=== PATIENT | male | born 1955 | race Caucasian/White ===

== ENCOUNTER 2017-08-04 14:32 | Outpatient (CLI) | payer SELFPAY | END 2017-08-04 14:33 | disposition critical access hospital (66) | LOC: EMS 14:32 | PROVIDERS: ATTEND Surgery | DX: R56.9 Unspecified convulsions (principal) | CPT/HCPCS: A0425; A0429 ==

== ENCOUNTER 2017-08-04 14:50 | Emergency (ER) | payer SELFPAY ==
[2017-08-04] MEDS ORDERED: PHENYTOIN 100 MG/2 ML VIAL IVP STA (15:06)
--- NOTE | 2017-08-04 15:08 | ED Physician Documentation ---
PD HPI SEIZURE - Stated complaint Stated Complaint: SEIZURE - Chief complaint Chief Complaint: Neuro - History obtained from History obtained from: Patient - History of Present Illness Timing - onset: Today Witnessed: Witnessed Number of seizures: Single Description of seizure activity: Generalized Injury during seizure: None Associated symptoms: None History of seizures: Known seizure disorder Contributing factors: Out of meds Similar symptoms before: Diagnosis (seizure disorder) Recently seen: Not recently seen - Additional information Additional information: 61-year-old male with a history of seizure disorder usually on Dilantin has been cutting down on his Dilantin because of running out of medications. Today he was at his home in his apartment on [address] when he had a seizure. This was witnessed by his girlfriend and his grandson.He indicates that he has not had a seizure for "a long time ".He did not feel ill prior to this and denies current illness. Review of Systems Constitutional: denies: Fever, Chills, Myalgias, Fatigue Eyes: denies: Decreased vision Ears: denies: Ear pain Nose: denies: Rhinorrhea / runny nose, Congestion Throat: denies: Sore throat Cardiac: denies: Chest pain / pressure, Palpitations Respiratory: denies: Dyspnea, Cough GI: denies: Abdominal Pain, Nausea, Vomiting, Constipation, Diarrhea : denies: Dysuria, Frequency Skin: denies: Rash Musculoskeletal: denies: Neck pain, Back pain, Extremity pain Neurologic: reports: Seizure. denies: Generalized weakness, Focal weakness, Numbness, Confused PD PAST MEDICAL HISTORY - Present Medications Home Medications: Ambulatory Orders Medication Instructions Recorded Confirmed Azithromycin [Zithromax] 250 mg PO DAILY #6 tablet 08/04/17 Phenytoin [Dilantin] 200 mg PO BID #120 capsule 08/04/17 PD ED PE NORMAL - Vitals Vital signs reviewed: Yes (Hypertensive) - General General: No acute distress, Well developed/nourished - HEENT HEENT: Atraumatic, PERRL, EOMI, Other (There is mild erythema to the right TM and not to the left.) - Neck Neck: Supple, no meningeal sign, No bony TTP - Cardiac Cardiac: RRR, No murmur - Respiratory Respiratory: No respiratory distress, Clear bilaterally - Abdomen Abdomen: Soft, Non tender - Back Back: No CVA TTP, No spinal TTP - Derm Derm: Normal color, Warm and dry, No rash - Extremities Extremities: No deformity, No edema - Neuro Neuro: Alert and oriented X 3, quality consultant 2-12 intact, No motor deficit, No sensory deficit - Psych Psych: Normal mood, Normal affect Results - Vitals Vitals: Vital Signs - 24 hr 08/04/17 08/04/17 14:52 15:47 Temperature 36.4 C L Heart Rate 94 83 Respiratory 18 16 Rate Blood Pressure 130/107 H 126/99 H O2 Saturation 97 94 Oxygen O2 Source Room air - EKG (time done) 1501 Rate: Rate (enter#) (91) Rhythm: NSR Ischemia: Q waves (V1,V2) Compare to prior EKG: Old EKG unavailable Computer interpretation: Agree with computer - Labs Labs: Laboratory Tests 08/04/17 08/04/17 08/04/17 15:26 15:26 15:26 WBC 7.2 RBC 4.91 Hgb 16.3 Hct 47.3 MCV 96.2 H MCH 33.1 H MCHC 34.4 RDW 14.1 Plt Count 281 MPV 7.5 Neut # 4.5 Lymph # 2.0 [place] # 0.5 Eos # 0.1 Baso # 0.0 Absolute Nucleated RBC 0.00 Nucleated RBCs 0.1 Sodium 135 Potassium 4.2 Chloride 103 Carbon Dioxide 24 Anion Gap 8.0 BUN 25 H Creatinine 0.9 Estimated GFR (MDRD) 86 L Glucose 103 H Calcium 9.2 Total Bilirubin 0.3 AST 28 ALT 22 Alkaline Phosphatase 62 Troponin I < 0.04 Total Protein 7.1 Albumin 3.8 Globulin 3.3 Albumin/Globulin Ratio 1.2 Lipase 20 L Phenytoin < 2.5 Ethyl Alcohol 6.3 Procedures - IVC sono (time) 1508 Bedside IVC sono: IVC measures (cm) (1.63), Euvolemia PD MEDICAL DECISION MAKING - ED course Complexity details: reviewed old records, reviewed results, re-evaluated patient , considered differential, d/w patient, d/w family ED course: 61-year-old male with a history of seizure disorder who is been seizure-free on Dilantin for years has stopped his Dilantin about 40 days ago. He had a seizure today 2. The seizures were prolonged about 5 minutes each and he was postictal following them. Here in the emergency department he is administered Dilantin 300 mg intravenously and he is found on examination to have a right otitis media and this is treated as well with dexamethasone and we will put him on a Z-Vince. I have agreed to write a prescription for the patient's Dilantin at 200 mg twice daily with 1 refill to last the patient 2 months. He does have some psoriasis that is bothering him recently and I suspect this may be related to the otitis as well. Departure - Departure Disposition: 01 Home, Self Care Clinical Impression: Seizure, Subtherapeutic serum dilantin level Otitis media Qualifiers: Otitis media type: suppurative Chronicity: acute Laterality: right Recurrence: not specified as recurrent Spontaneous tympanic membrane rupture: without spontaneous rupture Qualified Code(s): H66.001 - Acute suppurative otitis media without spontaneous rupture of ear drum, right ear Condition: Stable Instructions: ED Otitis Media Acute Adult, ED Seizure Recurrent, Epilepsy Self Care Follow-Up: Sofy Jaeger PA-C [Primary Care Provider] - Prescriptions: Phenytoin [Dilantin] 200 mg PO BID #120 capsule Azithromycin [Zithromax] 250 mg PO DAILY #6 tablet Comments: Today in the Emergency Department your blood pressure was elevated. This can happen from the stress of the visit itself, from a current illness or circumstance or from uncontrolled hypertension. If you take blood pressure medications take your usual mediations, have your blood pressure re-checked in an appropriate setting and follow up any elevation with your primary care doctor.
[2017-08-04 15:57] LABS: ALBUMIN/GLOBULIN RATIO 1.2 (1.0-2.2); BILIRUBIN,TOTAL 0.3 mg/dL (0.2-1.0); BUN - BLOOD UREA NITROGEN 25 mg/dL (6-20); CALCIUM 9.2 mg/dL (8.5-10.3); CARBON DIOXIDE - CO2 24 mmol/L (21-32); CHLORIDE 103 mmol/L (101-111); CREATININE 0.9 mg/dL (0.6-1.2); GFR - MDRD 86 (>89); GLUCOSE 103 mg/dL (70-100); LIPASE 20 U/L (22-51); POTASSIUM 4.2 mmol/L (3.5-5.0); SODIUM 135 mmol/L (135-145); TOTAL PROTEIN 7.1 g/dL (6.7-8.2)
[2017-08-04 16:10] LABS: BASOPHILS % (AUTO) 0.6 %; EOSINOPHILS # (AUTO) 0.1 10^3/uL (0.0-0.7); HCT - HEMATOCRIT 47.3 % (42.0-52.0); HGB - HEMOGLOBIN 16.3 g/dL (14.0-18.0); LYMPHOCYTES % (AUTO) 27.6 %; MEAN CORPUSCULAR HEMOGLOBIN 33.1 pg (27.0-31.0); MEAN CORPUSCULAR HGB CONC 34.4 g/dL (32.0-36.0); MEAN CORPUSCULAR VOLUME 96.2 fL (80.0-94.0); MEAN PLATELET VOLUME 7.5 fL (7.4-11.4); MONOCYTES # (AUTO) 0.5 10^3/uL (0.0-1.0); MONOCYTES % (AUTO) 7.5 %; NEUTROPHILS # (AUTO) 4.5 10^3/uL (1.5-6.6); NEUTROPHILS % (AUTO) 62.3 %; NUCLEATED RED BLOOD CELLS AUTO 0.1 /100WBC; RED BLOOD COUNT 4.91 10^6/uL (4.70-6.10); RED CELL DISTRIBUTION WIDTH 14.1 % (12.0-15.0); UNCORRECTED WHITE BLOOD COUNT 7.2 x10^3/uL; WHITE BLOOD COUNT 7.2 x10^3/uL (4.8-10.8)
[2017-08-04] MEDS ORDERED: DEXAMETHASONE 10 MG/ML VIAL IVP STA (16:36)
[2017-08-04 16:50] VITALS: BP 147/93
[2017-08-04] MEDS ORDERED: DEXAMETHASONE 10 MG/ML VIAL ONE (16:51)
[2017-08-04] MEDS ORDERED: SODIUM CHLORIDE FLUSH 0.9% 10 ML SYRINGE IVP ONE (16:51)
[2017-08-04 16:58] LABS: BILIRUBIN,URINE NEGATIVE (NEGATIVE)
[2017-08-04 16:59] LABS: UA CHARGE (STRIP ONLY) YES; UR CULTURE IF IND NOT INDICATED
== END 2017-08-04 16:57 | disposition home or self-care (01) ==
LOC: EDUNIT# → ED 14:50
DX: R56.9 Unspecified convulsions (principal); T42.0X6A Underdosing of hydantoin derivatives, initial encounter; Z91.128 Patient's intentional underdosing of medication regimen for other reason
CPT/HCPCS: 36415; 80053; 80185; 80306; 80320; 81001; 81003; 83690; 84484; 85025; 87086; 93005; 96374; 96375; 99284

== ENCOUNTER 2018-01-05 11:51 | Outpatient (CLI) | payer SELFPAY | END 2018-01-05 11:52 | disposition critical access hospital (66) | LOC: EMS 11:51 | PROVIDERS: ATTEND Surgery | DX: R56.9 Unspecified convulsions (principal); R51 Headache; W07.XXXA Fall from chair, initial encounter; Y92.030 Kitchen in apartment as the place of occurrence of the external cause | CPT/HCPCS: A0425; A0429 ==

== ENCOUNTER 2018-01-05 12:05 | Emergency (ER) | payer SELFPAY ==
[2018-01-05 13:14] LABS: BASOPHILS % (AUTO) 0.5 %; EOSINOPHILS # (AUTO) 0.1 10^3/uL (0.0-0.7); EOSINOPHILS % (AUTO) 1.8 %; HGB - HEMOGLOBIN 15.8 g/dL (14.0-18.0); LYMPHOCYTES # (AUTO) 1.1 10^3/uL (1.5-3.5); LYMPHOCYTES % (AUTO) 14.3 %; MEAN CORPUSCULAR HEMOGLOBIN 33.1 pg (27.0-31.0); MEAN CORPUSCULAR HGB CONC 34.3 g/dL (32.0-36.0); MEAN CORPUSCULAR VOLUME 96.5 fL (80.0-94.0); MEAN PLATELET VOLUME 6.7 fL (7.4-11.4); MONOCYTES # (AUTO) 0.6 10^3/uL (0.0-1.0); MONOCYTES % (AUTO) 7.3 %; NEUTROPHILS # (AUTO) 5.9 10^3/uL (1.5-6.6); NEUTROPHILS % (AUTO) 76.1 %; PLT - PLATELET COUNT 240 10^3/uL (130-450); RED BLOOD COUNT 4.76 10^6/uL (4.70-6.10); RED CELL DISTRIBUTION WIDTH 13.8 % (12.0-15.0); WHITE BLOOD COUNT 7.8 x10^3/uL (4.8-10.8)
[2018-01-05 13:23] LABS: CALCIUM 8.7 mg/dL (8.5-10.3); PHENYTOIN (DILANTIN) 4.6 ug/mL
[2018-01-05] MEDS ORDERED: NAPROXEN 250 MG TABLET PO STA (13:30)
--- NOTE | 2018-01-05 13:38 | ED Physician Documentation ---
PD HPI SEIZURE - Stated complaint Stated Complaint: SZ - Chief complaint Chief Complaint: Neuro - History obtained from History obtained from: Patient, Family, EMS - History of Present Illness Timing - onset: Today Witnessed: Witnessed Number of seizures: Single, Lasted - seconds (20) Description of seizure activity: Generalized, Tonic clonic Injury during seizure: Fell, Head injury (hit head on tile floor.). No: Neck injury, Bit tongue, Shoulder dislocation Pain level max: 6 Pain level now: 5 Associated symptoms: No: Headache, Vision changes, Chest pain, Palpitations, Diaphoresis, Dyspnea, Nausea / vomiting History of seizures: Known seizure disorder Contributing factors: Other (has "had to stretch out his medications because no pharmacy has them in stock") Similar symptoms before: Diagnosis (seizures) Recently seen: Not recently seen Review of Systems Ten Systems: 10 systems reviewed and negative Constitutional: denies: Fever, Chills Ears: denies: Ear pain Nose: denies: Rhinorrhea / runny nose, Congestion GI: denies: Abdominal Pain, Nausea, Vomiting, Diarrhea Skin: denies: Rash Musculoskeletal: denies: Neck pain, Back pain Neurologic: denies: Focal weakness, Numbness, Headache PD PAST MEDICAL HISTORY - Past Medical History Past Medical History: Yes Neuro: Seizure disorder - Present Medications Home Medications: Ambulatory Orders Medication Instructions Recorded Confirmed Azithromycin [Zithromax] 250 mg PO DAILY #6 tablet 08/04/17 Phenytoin [Dilantin] 200 mg PO BID #120 capsule 08/04/17 Meloxicam [Mobic] 7.5 mg PO BID PRN #20 tablet 01/05/18 - Allergies Allergies/Adverse Reactions: Allergies Allergy/AdvReac Type Severity Reaction Status Date / Time Penicillins Allergy Itching Verified 01/05/18 13:47 - Social History Does the pt smoke?: Yes Smoking Status: Current every day smoker PD ED PE NORMAL - Vitals Vital signs reviewed: Yes - General General: Alert and oriented X 3, No acute distress, Well developed/nourished - HEENT HEENT: PERRL, EOMI, Ears normal, Moist mucous membranes, Pharynx benign, Other ( Occipital scalp hematoma without palpable fracture) - Neck Neck: Supple, no meningeal sign, No bony TTP, Other (Full range of motion without pain) - Cardiac Cardiac: RRR, Strong equal pulses - Respiratory Respiratory: No respiratory distress, Clear bilaterally - Abdomen Abdomen: Soft, Non tender, Non distended - Back Back: No spinal TTP - Derm Derm: Warm and dry - Extremities Extremities: No deformity, Normal ROM s pain - Neuro Neuro: Alert and oriented X 3, jingle writer 2-12 intact, No motor deficit, No sensory deficit, Normal speech Eye Opening: Spontaneous Motor: Obeys Commands Verbal: Oriented GCS Score: 15 - Psych Psych: Normal mood Results - Vitals Vitals: Vital Signs - 24 hr 01/05/18 01/05/18 12:08 15:01 Temperature 36.4 C L Heart Rate 81 68 Respiratory 18 18 Rate Blood Pressure 166/107 H 168/106 H O2 Saturation 96 98 Oxygen O2 Source Room air - Labs Labs: Laboratory Tests 01/05/18 01/05/18 13:10 13:10 WBC 7.8 RBC 4.76 Hgb 15.8 Hct 45.9 MCV 96.5 H MCH 33.1 H MCHC 34.3 RDW 13.8 Plt Count 240 MPV 6.7 L Neut # 5.9 Lymph # 1.1 L [place] # 0.6 Eos # 0.1 Baso # 0.0 Absolute Nucleated RBC 0.00 Nucleated RBC % 0.0 Sodium 138 Potassium 4.6 Chloride 102 Carbon Dioxide 27 Anion Gap 9.0 BUN 17 Creatinine 1.0 Estimated GFR (MDRD) 76 L Glucose 95 Calcium 8.7 Phenytoin 4.6 - Rads (name of study) head CT Radiology: Prelim report reviewed, EMP read contemporaneously, See rad report ( no acute intracranial abnormality.) PD MEDICAL DECISION MAKING - ED course Complexity details: reviewed old records, reviewed results, re-evaluated patient , considered differential, d/w patient, d/w family ED course: Patient is a 62-year-old male who presents to the emergency department with a recurrent seizure. No seizure disorder. Did strike his head forcefully on the ground, therefore head CT was obtained. No acute intracranial abnormalities. No neck pain or tenderness. Recommend that he follow-up with his doctor regarding his medications as he is having difficulty finding a pharmacy to fill the phenytoin at. Possible that he would benefit from switching to something such as Keppra? Patient and family counseled regarding signs and symptoms for which I believe and urgent re-evaluation would be necessary. Patient with good understanding of and agreement to plan and is comfortable going home at this time This document was made in part using voice recognition software. While efforts are made to proofread this document, sound alike and grammatical errors may occur. Departure - Departure Disposition: 01 Home, Self Care Clinical Impression: Seizure, Subtherapeutic serum dilantin level Condition: Good Instructions: ED Seizure Recurrent Follow-Up: Matt Gaston MD [Credentialed Staff Provider] - Within 1 week Prescriptions: Meloxicam [Mobic] 7.5 mg PO BID PRN #20 tablet PRN Reason: Pain Comments: Talk to your doctor about changing your medication to something like Keppra to see if this will better control your seizures. Return if you worsen. Discharge Date/Time: 01/05/18 15:04
--- NOTE | 2018-01-05 14:40 | CT Report ---
EXAM: CT HEAD EXAM DATE: 01/05/2018 02:05 PM. CLINICAL HISTORY: Fall, head injury during seizure. History left back area of head. COMPARISON: None. TECHNIQUE: Multiaxial CT images were obtained from the foramen magnum to the vertex. Reformats: Coron al. IV contrast: None. In accordance with CT protocol optimization, one or more of the following dose reduction techniques w ere utilized for this exam: automated exposure control, adjustment of mA and/or KV based on patient s ize, or use of iterative reconstructive technique. FINDINGS: Parenchyma: No intraparenchymal hemorrhage. No evidence of mass, midline shift, or CT findings of inf arction. Duncan-white differentiation is distinct. Extraaxial Spaces: Normal for age. No subdural or epidural collections identified. Ventricles: Normal in size and position. Sinuses and Orbits: Imaged paranasal sinuses, orbits, and mastoids show no significant abnormality. Bones: No evidence of fracture or calvarial defect. Other: None. IMPRESSION: Normal head CT. [facility] Referring Provider Line: [phone] SITE ID: [id number]
--- NOTE | 2018-01-05 14:40 | CT Preliminary Report ---
Exam: CT HEAD W/O IMPRESSION: Normal head CT. [facility] SITE ID: [id number]
[2018-01-05 15:01] VITALS: BP 168/106
== END 2018-01-05 15:04 | disposition home or self-care (01) ==
LOC: EDUNIT# → ED 12:05
DX: R56.9 Unspecified convulsions (principal); T42.0X6A Underdosing of hydantoin derivatives, initial encounter; Z91.128 Patient's intentional underdosing of medication regimen for other reason; F17.200 Nicotine dependence, unspecified, uncomplicated
CPT/HCPCS: 36415; 70450; 80048; 80185; 85025; 99284; A9270

== ENCOUNTER 2021-11-09 13:26 | Emergency (ER) | payer OTHER ==
--- NOTE | 2021-11-09 13:47 | ED Physician Documentation ---
PD HPI HEENT - Stated complaint Stated Complaint: DIZZINESS/WEAKNESS - Chief complaint Chief Complaint: Neuro - History obtained from History obtained from: Patient - History of Present Illness Timing - onset: How many days ago (few) Timing - duration: Days (few) Timing - details: Gradual onset, Still present, Waxing and waning Location: Other (He has had a feeling of vertigo with movement more to the left with head position and orthostatic position changes for several days. Gradual onset with waxing and waning. Feeling of some sinus pressure and congestion. No cough or ear pain.) Improves: Other (holding still and lying reclined.) Worsens: Position (moving head or standing up.) Associated symptoms: Other (denies ear pain.). No: Fever, Congestion, Rhinorrhea, Headache Similar symptoms before: Diagnosis (He states he had similar symptoms with an ear infection several years ago. Denies any recent congestion or viral symptoms per se. Denies recent injury to the head. Denies change in medical condition of his phenytoin. He did have his lisinopril dose increased a month ago.) Recently seen: Clinic (last PMD visit about 2 months ago, with increased dose Lisinopril, and changed regimen for dilantin (same daily total but went from 200 mg BID to 400 mg just at night).) Review of Systems Constitutional: denies: Fever, Chills Eyes: denies: Loss of vision Ears: denies: Loss of hearing, Ear pain Nose: reports: Sinus pressure / pain. denies: Rhinorrhea / runny nose, Con gestion Throat: denies: Sore throat Respiratory: denies: Cough GI: reports: Nausea (with the vertigo). denies: Vomiting, Diarrhea Skin: denies: Rash, Lesions Neurologic: denies: Focal weakness, Numbness, Headache, Head injury PD PAST MEDICAL HISTORY - Past Medical History Past Medical History: Yes Cardiovascular: Hypertension, High cholesterol Respiratory: None Neuro: Seizure disorder (denies recent dose change, but the timing is different, moving from 200 mg BID to 400 mg at night couple months ago. Otherwise had Lisinopril dose increased 20 to 40 mg. ) Endocrine/Autoimmune: None GI: None : None HEENT: None Psych: None Musculoskeletal: None Derm: Psoriasis - Past Surgical History Past Surgical History: Yes Derm: Skin cancer surgery - Present Medications Home Medications: Ambulatory Orders Medication Instructions Recorded Confirmed Azithromycin [Zithromax] 250 mg PO DAILY #6 tablet 08/04/17 Phenytoin [Dilantin] 200 mg PO BID #120 capsule 08/04/17 Meloxicam [Mobic] 7.5 mg PO BID PRN #20 tablet 01/05/18 Cetirizine [ZyrTEC] 10 mg PO BID #14 tablet 11/09/21 Meclizine HCl [Motion Sickness] 25 mg PO Q6H PRN #30 tablet 11/09/21 cephALEXin [Keflex] 500 mg PO TID 5 Days #15 cap 11/09/21 - Allergies Allergies/Adverse Reactions: Allergies Allergy/AdvReac Type Severity Reaction Status Date / Time Penicillins Allergy Itching Verified 01/05/18 13:47 - Social History Does the pt smoke?: Yes Smoking Status: Current every day smoker Does the pt drink ETOH?: No Does the pt have substance abuse?: No - Immunizations Immunizations are current?: Yes - POLST Patient has POLST: No PD ED PE NORMAL - Vitals Vital signs reviewed: Yes - General General: Alert and oriented X 3, Well developed/nourished - HEENT HEENT: PERRL, EOMI (nystgmus noted to the left with eye movement. ), Moist mucous membranes, Pharynx benign. No: Ears normal (right is normal. Left with fluid pressure behind eardrum and mild redness. ) - Neck Neck: Supple, no meningeal sign, No adenopathy - Cardiac Cardiac: RRR, No murmur - Respiratory Respiratory: Clear bilaterally - Abdomen Abdomen: Soft, Non tender - Derm Derm: Normal color, Warm and dry - Extremities Extremities: No edema, No calf tenderness / cord - Neuro Neuro: Alert and oriented X 3, automobile tester 2-12 intact, No motor deficit, No sensory deficit, Normal speech, Other (He has a normal Romberg test. Uljzhc-ayst-alyyny and [id number] tests are normal as well. No obvious incoordination. Walking does show some listing to the left.) Results - Vitals Vitals: Vital Signs - 24 hr 11/09/21 11/09/21 13:33 16:05 Temperature 35.6 C L 37 C Heart Rate 67 70 Blood Pressure 157/90 H 130/70 O2 Saturation 99 Oxygen O2 Source Room air - EKG (time done) 15:29 Rate: Rate (enter#) (60) Rhythm: NSR [place]: Normal Intervals: Normal [place]. No: Prolonged QT QRS: Low voltage Ischemia: Normal ST segments. No: ST elevation c/w ischemia, ST depression - Labs Labs: Laboratory Tests 11/09/21 11/09/21 14:14 14:14 WBC 7.7 RBC 4.64 L Hgb 15.3 Hct 45.6 MCV 98.3 H MCH 33.0 H MCHC 33.6 RDW 13.7 Plt Count 306 MPV 8.2 Neut # (Auto) 4.4 Lymph # (Auto) 2.3 [place] # (Auto) 0.9 Eos # (Auto) 0.1 Baso # (Auto) 0.0 Absolute Nucleated RBC 0.00 Nucleated RBC % 0.0 Sodium 135 Potassium 4.3 Chloride 97 L Carbon Dioxide 30 Anion Gap 8.0 BUN 20 Creatinine 0.9 Estimated GFR (MDRD) 85 L Glucose 108 H Calcium 9.1 Magnesium 2.2 Total Bilirubin 0.3 AST 16 ALT 14 Alkaline Phosphatase 97 Total Protein 7.5 Albumin 4.0 Globulin 3.5 Albumin/Globulin Ratio 1.1 Lipase 24 Phenytoin 44.8 H* PD MEDICAL DECISION MAKING - ED course Complexity details: reviewed results (toxic dilantin level, but would be chronic and not acute, no overdose or recent increased dose. Referenced UpToDate and disposition can be to home if able to walk safely and not too ataxic nor vomiting. Can have reliable follow up.), re-evaluated patient, considered differential (AsClinically sounds like peripheral vertigo. Will use. He is on Dilantin and that would be worth getting a level as well as sodium level to ensure no toxic cause.), d/w patient Departure - Departure Disposition: Home, Self Care Clinical Impression: Vertigo Dilantin toxicity Qualifiers: Encounter type: initial encounter Injury intent: accidental or unintentional Qualified Code(s): T42.0X1A - Poisoning by hydantoin derivatives, accidental (unintentional), initial encounter Otitis media, left Qualifiers: Otitis media type: serous Chronicity: acute Recurrence: non-recurrent Qualified Code(s): H65.02 - Acute serous otitis media, left ear Condition: Stable Record reviewed to determine appropriate education?: Yes Follow-Up: Julien Rodriguez DO [Primary Care Provider] - Prescriptions: cephALEXin [Keflex] 500 mg PO TID 5 Days #15 cap Meclizine HCl [Motion Sickness] 25 mg PO Q6H PRN #30 tablet PRN Reason: Vertigo Cetirizine [ZyrTEC] 10 mg PO BID #14 tablet Comments: I would hold your Dilantin this evening and for Saturday and Saturday as well. Resume your dosing on Saturday at 200 mg once daily (decreased from twice daily). Follow-up with your primary care to have them recheck your Dilantin level on Saturday or Saturday of this coming week to ensure its improved in the right range. Stay well-hydrated. Your dizziness and off-balance are likely related to the high Dilantin level and these are symptoms of toxicity from that. However you do have some fluid behind the left ear and there could be some element of inner ear problem as well. For that we can use antihistamines to help with fluid as well as medications for the vertigo itself. Recheck if or worsening symptoms over the next day or 2, in particular if you are having difficulty maintaining balance or having worse vision problems or dizziness. Meclizine every 6 hours if needed for vertigo. Again hold your Dilantin dosing tonight tomorrow and Saturday and then resume at half dose pending a recheck of your blood level early this coming week. I transmitted your scripts to [facility] pharmacy. Discharge Date/Time: 11/09/21 16:07
[2021-11-09] MEDS: CHERRY SYRUP 10 ML UDC PO ONE (14:17)
[2021-11-09 14:18] LABS: BASOPHILS % (AUTO) 0.5 %; EOSINOPHILS # (AUTO) 0.1 10^3/uL (0.0-0.7); EOSINOPHILS % (AUTO) 1.3 %; HCT - HEMATOCRIT 45.6 % (42.0-52.0); HGB - HEMOGLOBIN 15.3 g/dL (14.0-18.0); LYMPHOCYTES # (AUTO) 2.3 10^3/uL (1.5-3.5); LYMPHOCYTES % (AUTO) 29.9 %; MEAN CORPUSCULAR HGB CONC 33.6 g/dL (32.0-36.0); MEAN CORPUSCULAR VOLUME 98.3 fL (80.0-94.0); MEAN PLATELET VOLUME 8.2 fL (7.4-11.4); MONOCYTES # (AUTO) 0.9 10^3/uL (0.0-1.0); MONOCYTES % (AUTO) 11.2 %; NEUTROPHILS # (AUTO) 4.4 10^3/uL (1.5-6.6); NEUTROPHILS % (AUTO) 56.8 %; PLT - PLATELET COUNT 306 10^3/uL (130-450); RED BLOOD COUNT 4.64 10^6/uL (4.70-6.10); RED CELL DISTRIBUTION WIDTH 13.7 % (12.0-15.0); WHITE BLOOD COUNT 7.7 x10^3/uL (4.8-10.8)
[2021-11-09] MEDS: CETIRIZINE 10 MG TABLET PO STA (14:18)
[2021-11-09] MEDS: DEXAMETHASONE 10 MG/ML VIAL PO STA (14:18)
[2021-11-09] MEDS: cephALEXin 250 MG CAPSULE PO STA (14:18)
[2021-11-09] MEDS: MECLIZINE 12.5 MG TABLET PO STA (14:18)
[2021-11-09 14:36] LABS: ALBUMIN/GLOBULIN RATIO 1.1 (1.0-2.2); BILIRUBIN,TOTAL 0.3 mg/dL (0.2-1.0); CALCIUM 9.1 mg/dL (8.5-10.3); CREATININE 0.9 mg/dL (0.6-1.2); MAGNESIUM 2.2 mg/dL (1.7-2.8); POTASSIUM 4.3 mmol/L (3.5-5.0); TOTAL PROTEIN 7.5 g/dL (6.7-8.2)
[2021-11-09 15:03] LABS: PHENYTOIN (DILANTIN) 44.8 ug/mL
[2021-11-09 16:07] VITALS: BP 130/70
== END 2021-11-09 16:07 | disposition home or self-care (01) ==
LOC: ED 13:26
DX: R42 Dizziness and giddiness (principal); T42.0X5A Adverse effect of hydantoin derivatives, initial encounter; H65.02 Acute serous otitis media, left ear; G40.909 Epilepsy, unspecified, not intractable, without status epilepticus; I10 Essential (primary) hypertension; F17.200 Nicotine dependence, unspecified, uncomplicated
CPT/HCPCS: 36415; 80053; 80185; 83690; 83735; 85025; 93005; 99283; 99284; A9270

== ENCOUNTER 2023-07-16 15:27 | Emergency (ER) | payer OTHER ==
[2023-07-16 15:44] VITALS: BP 150/80; O2SAT 98
[2023-07-16] MEDS ORDERED: BUFFERED LIDOCAINE 10 ML SYRINGE SUBQ STA (17:23)
[2023-07-16] MEDS ORDERED: TETANUS/DIPHTHERIA/PERTUSSIS 0.5 ML SYRINGE IM ONE (17:23)
--- NOTE | 2023-07-16 17:24 | ED Physician Documentation ---
PD HPI UPPER EXT INJURY - Stated complaint Stated Complaint: RT ELBOW LAC/SWELLING - Chief complaint Chief Complaint: Ext Problem - History obtained from History obtained from: Patient (67-year-old gentleman otherwise healthy with unknown tetanus status was at work 2 weeks ago and scratched himself on a metal edge on the right elbow. It was getting better but then got more swollen and painful and red. No fevers.) PD PAST MEDICAL HISTORY - Past Medical History Cardiovascular: Hypertension, High cholesterol Respiratory: None Neuro: Seizure disorder (denies recent dose change, but the timing is different, moving from 200 mg BID to 400 mg at night couple months ago. Otherwise had Lisinopril dose increased 20 to 40 mg. ) Endocrine/Autoimmune: None GI: None : None HEENT: None Psych: None Musculoskeletal: None Derm: Psoriasis - Past Surgical History Past Surgical History: Yes Derm: Skin cancer surgery - Present Medications Home Medications: Ambulatory Orders Medication Instructions Recorded Confirmed Azithromycin [Zithromax] 250 mg PO DAILY #6 tablet 08/04/17 Phenytoin [Dilantin] 200 mg PO BID #120 capsule 08/04/17 Meloxicam [Mobic] 7.5 mg PO BID PRN #20 tablet 01/05/18 Cetirizine [ZyrTEC] 10 mg PO BID #14 tablet 11/09/21 Meclizine HCl [Motion Sickness] 25 mg PO Q6H PRN #30 tablet 11/09/21 cephALEXin [Keflex] 500 mg PO TID 5 Days #15 cap 11/09/21 Sulfamethox/Trimeth 800/160 1 each PO BID #14 tablet 07/16/23 [Bactrim Ds 800/160] cephALEXin [Keflex] 500 mg PO Q6H #28 cap 07/16/23 - Allergies Allergies/Adverse Reactions: Allergies Allergy/AdvReac Type Severity Reaction Status Date / Time Penicillins Allergy Itching Verified 07/16/23 15:31 - Social History Does the pt smoke?: Yes Smoking Status: Current every day smoker Does the pt drink ETOH?: No Does the pt have substance abuse?: No - Immunizations Immunizations are current?: Yes - POLST Patient has POLST: No PD ED PE NORMAL - Vitals Vital signs reviewed: Yes - General General: Alert and oriented X 3, No acute distress - Extremities Extremities: Other (Fluctuant olecranon bursitis over the right elbow without limited range of motion.) - Neuro Neuro: Alert and oriented X 3, Normal speech Results - Vitals Vitals: Vital Signs - 24 hr 07/16/23 15:31 Temperature 36.5 C Heart Rate 70 Respiratory 18 Rate Blood Pressure 150/80 H O2 Saturation 98 Oxygen O2 Source Room air Procedures - Abscess I&D (location) Right olecranon bursitis Preparation: Betadine, Lidocaine 1% Incision: Incised with scalpel Other: Pt tolerated well, Dressing applied, Antibiotic prescribed PD Medical Decision Making - ED course Complexity details: other (L&I paperwork [id number] completed and submitted) ED course: He has olecranon bursitis. An I&D was done but I really did not find any pus. As such there is nothing to culture. Departure - Departure Disposition: Home, Self Care Clinical Impression: Olecranon bursitis Qualifiers: Laterality: right Qualified Code(s): M70.21 - Olecranon bursitis, right elbow Condition: Good Record reviewed to determine appropriate education?: Yes Instructions: ED Bursitis Elbow Olecranon Prescriptions: Sulfamethox/Trimeth 800/160 [Bactrim Ds 800/160] 1 each PO BID #14 tablet cephALEXin [Keflex] 500 mg PO Q6H #28 cap Comments: Return if you worsen, especially if you develop increased pain, fevers, cannot keep down the medication. Otherwise follow-up with your physician in approximately 2-3 days. Forms: PCP List
== END 2023-07-16 18:21 | disposition home or self-care (01) ==
LOC: ED 15:27
DX: M70.21 Olecranon bursitis, right elbow (principal); I10 Essential (primary) hypertension; E78.00 Pure hypercholesterolemia, unspecified; F17.200 Nicotine dependence, unspecified, uncomplicated; Z79.899 Other long term (current) drug therapy; Z23 Encounter for immunization
CPT/HCPCS: 10060; 1040M; 90471; 90715; 99283